=== PATIENT | male | born 1950 | race Caucasian/White ===

== ENCOUNTER 2016-12-04 14:17 | Emergency (ER) | payer OTHER ==
[~2016-12-04 14:17] MED LIST: ASPIRIN325 MG PO; COZAAR100 MG PO; FISH OIL 10001000 MG PO; HABITROL 14 MG P1 EA TD; NORVASC10 MG PO; PREDNISONE20 MG PO; PROVENTIL HFA 61 INH INH; TAMIFLU75 MG PO; VITAMIN D3 COM1 EACH PO
== END 2016-12-04 16:52 | disposition home or self-care (01) ==
LOC: ER1 14:17
DX: R68.89 Other general symptoms and signs (principal); Z79.899 Other long term (current) drug therapy
CPT/HCPCS: 70360; 99283

== ENCOUNTER → 2016-12-22 | Outpatient (CLI) | payer OTHER | LOC: HEART 5 10:28 | DX: J44.9 Chronic obstructive pulmonary disease, unspecified (principal) | CPT/HCPCS: 94060; 94729 ==

== ENCOUNTER → 2020-11-04 | Outpatient (CLI) | payer OTHER | LOC: HEART 5 12:57 | DX: I73.9 Peripheral vascular disease, unspecified (principal) ==

== ENCOUNTER → 2022-05-12 | Outpatient (CLI) | payer MEDICARE | LOC: HEART 5 11:17 | DX: J44.9 Chronic obstructive pulmonary disease, unspecified (principal) | CPT/HCPCS: 94060; 94729 ==